=== PATIENT | female | born 1980 | race Asian ===

== ENCOUNTER 2017-01-31 21:32 | Emergency (ER) | payer OTHER ==
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
[2017-01-31 21:54] VITALS: O2SAT 97
[2017-01-31 23:00] VITALS: BP 146/86; PULSE 98; RESP 18; TEMP 98.2
== END 2017-01-31 23:00 | disposition home or self-care (01) ==
DX: O9A.211 Injury, poisoning and certain other consequences of external causes complicating pregnancy, first trimester (principal); S39.92XA Unspecified injury of lower back, initial encounter; Z3A.01 Less than 8 weeks gestation of pregnancy; V49.60XA Unspecified car occupant injured in collision with unspecified motor vehicles in traffic accident, initial encounter; Y92.410 Unspecified street and highway as the place of occurrence of the external cause